=== PATIENT | male | born 1970 | race Caucasian/White ===

== ENCOUNTER 2023-12-01 04:15 | Inpatient (IN) | payer MEDICARE, SELFPAY ==
[2023-12-01] VITALS (29 sets, daily range): BP systolic 118–170; BP diastolic 80–106; PULSE 63–82; RESP 9–18; TEMP 36.4–37; O2SAT 91–98; BMI 29.2
--- NOTE | 2023-12-01 04:31 | XRR_ITS ---
PROCEDURE INFORMATION: Exam: XR Chest Exam date and time: 12/01/2023 4:33 AM Age: 53 years old Clinical indication: Chest pressure; Prior surgery; Surgery date: 6+ months; Surgery type: Pacer. Coronary stents; Patient HX: C/O chest pain; Additional info: Cp TECHNIQUE: Imaging protocol: Radiologic exam of the chest. Views: 1 view. COMPARISON: No relevant prior studies available. FINDINGS: Tubes, catheters and devices: Pacemaker was placed via the left subclavian vein. Lungs: Unremarkable. No consolidation. Pleural spaces: Unremarkable. No pleural effusion. No pneumothorax. Heart/Mediastinum: Unremarkable. No cardiomegaly. Bones/joints: Unremarkable. XR/XR chest 1V portable [id number] IMPRESSION: There are no acute chest findings.
--- NOTE | 2023-12-01 04:38 | W.ED.CHESTPA ---
HPI - Chest Pain General: Chief Complaint: Chest Pain Stated Complaint: CP Time Seen by Provider: 12/01/23 04:19 History of Present Illness: 53-year-old male patient here with chest discomfort. He tells me he has 18 stents in his heart. His chest discomfort started around 730 last night. He was short of breath. He is traveling currently. He was seen at an outside facility, where EKG changes were noted. His troponin enzymes however have been negative to date. His chest pain currently is a 0-1. He has Nitropaste on his chest. He is somewhat hypertensive. Associated symptoms: Reports dyspnea and nausea; Deny fever(s), palpitations or vomiting Review of Systems Const: Denies: fever(s) or chills Card: Reports: chest pain; Denies: palpitations Resp: Reports: dyspnea; Denies: productive cough GI: Reports: nausea; Denies: vomiting Physical Exam Const: COMMON NORMALS: no acute distress GENERAL APPEARANCE: cooperative; not ill appearing and not frail appearing HENMT: COMMON NORMALS: normocephalic, atraumatic and Normal external nose present HEAD & SCALP: normocephalic and atraumatic FACE & SINUS: normal facial exam and face symmetric NOSE: Normal external nose present Eye: COMMON NORMALS: Equal, round and reactive pupils present and EOMs intact bilaterally PUPIL: Yes Equal, round and reactive pupils present Neck/C-Spine: GENERAL: Yes trachea midline Chest: CHEST: Yes Symmetrical chest wall rise Resp: COMMON NORMALS: normal respiratory effort, No retractions, No use of accessory muscles and clear to auscultation bilaterally AUSCULTATION: clear to auscultation bilaterally Cardio: COMMON NORMALS: regular rate and regular rhythm RATE: regular rate RHYTHM: regular rhythm GI: COMMON NORMALS: Normal to inspection, nondistended, normoactive bowel sounds present Extremity: COMMON NORMALS: no pedal edema Neuro: ANTONIO COMA SCALE: document GCS findings [facility] coma scale eye opening: Spontaneous Antonio coma scale verbal response: Orientated Antonio coma scale motor response: Obey commands Antonio coma scale total score: 15 SENSORY EXAM: Yes extremities (intact) Psych: COMMON NORMALS: speech normal SPEECH: Yes normal speech Skin: COMMON NORMALS: no rashes or lesions noted GENERAL SKIN EXAM: no rashes or lesions noted Course Vital Signs: Vital signs: Vital Signs Temperature 97.9 F 12/01/23 04:16 Pulse Rate 72 12/01/23 05:05 Respiratory Rate 9 L 12/01/23 04:30 Blood Pressure 151/97 12/01/23 05:05 Pulse Oximetry 94 12/01/23 05:05 Oxygen Delivery Me thod Room Air 12/01/23 04:30 MDM - Chest Pain Medical Decision Making The patient's initial EKG here shows ST elevation in V1, 2 and 3 that is 1 box or less. Elevation is not significantly ischemic in appearance. I had spoken with our senior wind energy consultant regarding this patient while he was at the outside facility. He had seen the facilities EKG at that point, and determined that ST elevation was not significantly ischemic in nature by appearance. He is going to consult on the patient though, and likely take him to angiogram given his history. He is on heparin. This will be continued. Our hospitalist is aware of the patient. Labs have been redrawn here as well. He will go to the [facility]. Lab Data 12/01/23 04:25 12/01/23 04:25 Laboratory Results WBC 7.71 10^3/uL (3.29-11.43) 12/01/23 04:25 RBC 4.85 10^6/uL (3.85-5.65) 12/01/23 04:25 Hgb 15.00 g/dL (11.27-16.99) 12/01/23 04:25 Hct 46.1 % (37-53) 12/01/23 04:25 MCV 95.1 fl (82-101) 12/01/23 04:25 MCH 30.9 pg (27-33) 12/01/23 04:25 MCHC 32.5 g/dL (30-55) 12/01/23 04:25 RDW 12.3 % (12.1-15.1) 12/01/23 04:25 Plt Count 163 10^3/cmm (157-399) 12/01/23 04:25 MPV 10.5 fL (7.4-10.4) H 12/01/23 04:25 Neut % (Auto) 55.9 % 12/01/23 04:25 Lymph % (Auto) 29.3 % 12/01/23 04:25 [place] % (Auto) 8.4 % 12/01/23 04:25 Eos % (Auto) 5.1 % 12/01/23 04:25 Baso % (Auto) 0.9 % 12/01/23 04:25 Neut # (Auto) 4.31 10^3/uL (1.8-7.7) 12/01/23 04:25 Lymph # (Auto) 2.3 10^3/uL (0.8-4.8) 12/01/23 04:25 [place] # (Auto) 0.7 10^3/uL (0.2-0.9) 12/01/23 04:25 Eos # (Auto) 0.4 10^3/uL (0.0-0.8) 12/01/23 04:25 Baso # (Auto) 0.1 10^3/uL (0.0-0.1) 12/01/23 04:25 Nucleated RBC % (auto) 0 % 12/01/23 04:25 Nucleated RBCs # 0.0 /100WBC 12/01/23 04:25 PT 13.60 SECONDS (12.1-14.9) 12/01/23 04:25 INR 1.01 (0.8-1.2) 12/01/23 04:25 APTT 62.0 SECONDS (23.9-36.7) H 12/01/23 04:25 Sodium 137 mmol/L (136-145) 12/01/23 04:25 Potassium 3.9 mmol/L (3.5-5.1) 12/01/23 04:25 Chloride 102 mmol/L (98-107) 12/01/23 04:25 Carbon Dioxide 26 mmol/L (22-29) 12/01/23 04:25 Anion Gap 12.9 (5-19) 12/01/23 04:25 BUN 11 mg/dL (6-20) 12/01/23 04:25 Creatinine 1.1 mg/dL (0.7-1.2) 12/01/23 04:25 GFR Calculation 70.3 mL/min (90-130) L 12/01/23 04:25 Glucose 101 mg/dL (65-115) 12/01/23 04:25 Calculated Osmolality 284 mOsm/kg (285-295) L 12/01/23 04:25 Calcium 8.8 mg/dL (8.5-10.5) 12/01/23 04:25 Total Bilirubin 0.4 mg/dL (0.15-1.2) 12/01/23 04:25 AST 34 U/L (0-40) 12/01/23 04:25 ALT 39 U/L (0-41) 12/01/23 04:25 Alkaline Phosphatase 60 U/L (40-130) 12/01/23 04:25 Troponin T Baseline 12 ng/L (0-15) 12/01/23 04:25 NT-Pro-B Natriuret Pep 948 pg/mL (0-125) H 12/01/23 04:25 Total Protein 7.2 g/dL (6.6-8.7) 12/01/23 04:25 Albumin 3.8 g/dL (3.5-5.2) 12/01/23 04:25 Globulin 3.4 g/dL (1.3-4.6) 12/01/23 04:25 XR interpretation done by ED provider, pending radiology final review Discharge Plan Discharge Patient Disposition: Admitted As Inpatient Admit Provider: Chad Mandujano Clinical Impression: Chest pain Condition: Stable Coding Level of Care Code ED Warp Splitter for Suki Mendoza
[2023-12-01 04:42] LABS: Basophils # 0.1 10^3/uL (0.0-0.1); Basophils % 0.9 %; Eosinophils # 0.4 10^3/uL (0.0-0.8); Eosinophils % 5.1 %; Hematocrit 46.1 % (37-53); Lymphocytes # 2.3 10^3/uL (0.8-4.8); Lymphocytes % 29.3 %; Mean Corpuscular HGB Conc 32.5 g/dL (30-55); Mean Corpuscular Hemoglobin 30.9 pg (27-33); Mean Corpuscular Volume 95.1 fl (82-101); Mean Platelet Volume 10.5 fL (7.4-10.4); Monocytes # 0.7 10^3/uL (0.2-0.9); Monocytes % 8.4 %; Neutrophils # 4.31 10^3/uL (1.8-7.7); Neutrophils % 55.9 %; Nucleated Red Blood Cells % 0 %; Platelet Count 163 10^3/cmm (157-399); Red Blood Count 4.85 10^6/uL (3.85-5.65); Red Cell Distribution Width 12.3 % (12.1-15.1); White Blood Count 7.71 10^3/uL (3.29-11.43)
[2023-12-01 04:54] LABS: INR 1.01 (0.8-1.2)
[2023-12-01 05:02] LABS: Troponin(5th) Baseline 12 ng/L (0-15)
[2023-12-01 05:24] LABS: Alanine Aminotransferase 39 U/L (0-41); Albumin Level 3.8 g/dL (3.5-5.2); Alkaline Phosphatase 60 U/L (40-130); Blood Urea Nitrogen 11 mg/dL (6-20); Calcium 8.8 mg/dL (8.5-10.5); Carbon Dioxide 26 mmol/L (22-29); Chloride 102 mmol/L (98-107); Creatinine Clr Calc Pharmacy 92.5351; Globulin 3.4 g/dL (1.3-4.6); Glomerular Filtration Rate 70.3 mL/min (90-130); Glucose 101 mg/dL (65-115); NT Pro B Type Natriuretic Pept 948 pg/mL (0-125); Osmolality Calculated 284 mOsm/kg (285-295); Sodium 137 mmol/L (136-145); Total Bilirubin 0.4 mg/dL (0.15-1.2); Total Protein 7.2 g/dL (6.6-8.7)
[2023-12-01 05:25] LABS: Anion Gap 12.9 (5-19); Aspartate Amino Transferase 34 U/L (0-40); Potassium 3.9 mmol/L (3.5-5.1)
--- NOTE | 2023-12-01 05:35 | USCV_ITS ---
Jt Corrigan Age: 53 Gender: M : 1970 Exam Date: 12/01/2023 07:02 Ordering Phys: Chad Mandujano MD Technologist: Exam Location: [facility] Indication: chest pain sob BP: 150 / 104 HR: 87 Rhythm: Sinus Technical Quality: Adequate MEASUREMENTS (Male / Female) Normal Values 2D ECHO LV Diastolic Diameter PLAX 6.5 cm 4.2 - 5.9 / 3.9 - 5.3 cm IVS Diastolic Thickness 0.9 cm 0.6 - 1.0 / 0.6 - 0.9 cm IVS Systolic Thickness 1.4 cm LVPW Diastolic Thickness 1.1 cm 0.6 - 1.0 / 0.6 - 0.9 cm LVPW Systolic Thickness 1.4 cm LVOT Diameter 2.1 cm LV Ejection Fraction 2D Teich 36.0 % LV Ejection Fraction MOD 2C 21.8 % LV Ejection Fraction 2C AL 20.2 % LA Diameter 4.2 cm RA Systolic Volume 4C AL 51.0 ml RA Systolic Volume 4C MOD 46.9 ml LA Sys Volume AL 54.5 cm cubed LA Sys Volume Index AL 27.0 cm cubed/m squared Aorta at Sinotubular Diameter 3.0 cm DOPPLER AV Peak Velocity 128.0 cm/s LVOT Peak Velocity 91.0 cm/s AV Area Cont Eq vti 2.3 cm squared AV Area Cont Eq pk 2.4 cm squared MV Peak Velocity 74.0 cm/s MV Area PHT 3.9 cm squared Mitral E to A Ratio 1.4 TR Peak Velocity 139.0 cm/s TR Peak Gradient 7.7 mmHg TV Peak E Velocity 215.0 cm/s Right Atrial Pressure 3.0 mmHg Pulmonary Artery Systolic Pressu 10.7 mmHg PV Peak Velocity 75.0 cm/s FINDINGS Left Ventricle Left ventricle is dilated. LV systolic function is severely reduced with EF of 25 to 30%. Severe global hypokinesis Right Ventricle Normal in size and function Right Atrium Normal in size Left Atrium Normal in size Mitral Valve Structurally normal mitral valve. Mild mitral regurgitation. Aortic Valve Structurally normal aortic valve. No significant stenosis or regurgitation. Tricuspid Valve Insufficient TR jet to evaluate RVSP Pulmonic Valve Not well-visualized Pericardium Normal Aorta Normal in size IVC Appears to be normal CONCLUSIONS LV systolic function severely reduced with EF of 25 to 30%. Mild mitral regurgitation No comparison studies are available. Charly Matamoros MD (Electronically Signed) Final Date: 01 Dec 2023 11:17 S
--- NOTE | 2023-12-01 05:39 | P.HP_ITS ---
Providers/Chief Complaint 2 Admitting Physician: Chad Mandujano MD Chief Complaint: CP History of Present Illness Jt Corrigan is a 53 year old male with a past medical history of CAD with reported 18 stent placement, history of pacemaker placement, hypertension, hyperlipidemia, who presents [facility] as a transfer from [facility] for complaints of chest pain and EKG changes. Currently patient is alert oriented x 3, following all commands, blood pressure 151/97 pulse 72 respiratory rate 9, temperature 97.9, O2 sats 94% room air, currently he is chest pain-free, has Nitropaste on his chest, was given aspirin at outside facility, started on a heparin drip, patient reports that around 730 last night, he started to develop chest discomfort anterior chest discomfort, radiating down his left arm, associated with shortness of breath, does report a prior history of smoking, denies any drug use Medications/Allergies Allergies Allergy/AdvReac Type Severity Reaction Status Date / Time clopidogrel [From Plavix] Allergy ADV-Weaknes Verified 12/01/23 04:31 s PFSH Acute 2 PFSH: Medical History (Updated 12/01/23 @ 05:43 by Chad Mandujano MD) History of CAD (coronary artery disease) History of hyperlipidemia History of hypertension Surgical History (Updated 12/01/23 @ 05:43 by Chad Mandujano MD) History of heart artery stent History of permanent cardiac pacemaker placement Family History Brother CAD (coronary artery disease) Father CAD (coronary artery disease) Social History (Updated 12/01/23 @ 05:44 by Chad Mandujano MD) Smoking and tobacco/nicotine status: former use of tobacco/nicotine Alcohol intake: never Substance/Drug Use: never Vitals/I&O/Wt Last Vital Signs Temp 97.9 F 12/01/23 04:16 Pulse 72 12/01/23 05:05 Resp 9 L 12/01/23 04:30 BP 151/97 12/01/23 05:05 Pulse Ox 94 12/01/23 05:05 O2 Del Method Room Air 12/01/23 04:30 Weight last 48 hrs Weight 95.254 kg Physical Exam 2 Const: COMMON NORMALS: no acute distress and patient oriented x3 HENMT: COMMON NORMALS: normocephalic HEAD & SCALP: normocephalic Eye: COMMON NORMALS: Equal, round and reactive pupils present and EOMs intact bilaterally Neck/C-Spine: COMMON NORMALS: no JVD Lymph: LYMPHATIC: no lymphadenopathy noted Resp: COMMON NORMALS: normal respiratory effort, No retractions, No use of accessory muscles and clear to auscultation bilaterally AUSCULTATION: clear to auscultation bilaterally Cardio: COMMON NORMALS: no JVD, regular rate, regular rhythm, S1 normal heart sound present and S2 normal heart sound present RATE: regular rate RHYTHM: regular rhythm HEART SOUNDS: S1 normal heart sound present and S2 normal heart sound present GI: COMMON NORMALS: Normal to inspection, nondistended, normoactive bowel sounds present, Soft to palpation and non-tender Extremity: COMMON NORMALS: no pedal edema Neuro: COMMON NORMALS: patient oriented x3, CN's II-XII intact bilaterally and moves all extremities Psych: COMMON NORMALS: mental status grossly normal Data 12/01/23 04:25 12/01/23 04:25 A&P Assessment and plan (1) Chest pain: Plan Chest pain ? Received aspirin, Nitropaste, heparin drip at outside facility, concerns for ST elevations in anterior leads, no significant troponin rise ? Here EKG shows findings concerning for mild ST elevations in V1 to V3, here troponin is 12, findings were discussed with cardiology, after discussion with cardiology, follow-up was ST elevations were not significant in nature by appearance, cardiology will consult, plan on coronary angiography ? Plan ? Aspirin ? Statin, ? Coreg, next ?nitro paste, next ?monitor for chest pain ? Heparin drip ? Cardiac echo ? A1c, lipid panel, urine drug screen ? Heparin drip for DVT prophylaxis ? After detailed discussion of CODE STATUS patient tells me he wants okay with CPR, defibrillation, drugs per ACLS, however he does not want to be put on a ventilator, I had a detailed discussion with him that if he does need coronary angiography and he goes into respiratory failure what we do in that instance, he might need to be intubated for temporary period of time however he is adamant that he does not want to be intubated at that point he would just want to be made comfortable, but is agreeable to other interventions like ventilation via Ambu bag, BiPAP therapy Attestations 2 Medical Necessity Statement*: Patient requires hospitalization, inpatient, greater than 2 midnights, for chest pain Diagnoses Chest pain R07.9
--- NOTE | 2023-12-01 06:31 | ECG_ITS ---
[facility] Test Date: 2023-12-01 Pat Name: Jt Corrigan Department: Room: 111 Gender: Male [employer] Head: : 1970 Requested By: Oscar Kang Order Number: [id number] MD: Kaila Odom M.D. Measurements Intervals Allen Rate: 68 P: 46 NJ: 156 QRS: -20 QRSD: 104 T: 116 QT: 371 QTc: 395 Interpretive Statements SINUS RHYTHM POSSIBLE LEFT ATRIAL ENLARGEMENT [-0.1mV P-WAVE IN V1/V2] POSSIBLE LEFT VENTRICULAR HYPERTROPHY [VOLTAGE CRITERIA PLUS LAE OR QRS WIDENING] POSSIBLE SEPTAL MYOCARDIAL INFARCTION , OF INDETERMINATE AGE [30 ms Q WAVE IN V1/V2] Compared to ECG 12/01/2023 04:19:48 No significant changes Electronically Signed On 12-01-2023 18:07:36 CDT by Kaila Odom M.D. [id number]
[2023-12-01 06:52] LABS: Troponin 5 2HR 12.21 ng/L (0-15); Troponin 5 2HR Delta 0.21 ABS# (0-10)
[2023-12-01] MEDS: pantoprazole 40 mg SDV IVP (06:52)
[2023-12-01 07:02] LABS: Chol HDL Ratio 5.15 mg/dL (1.0-5.00); Cholesterol 201 mg/dL (0-200); HDL Cholesterol 39 mg/dL (60-100); LDL Cholesterol Calculated 135 mg/dL (50-129); LDL HDL Ratio 3.46 RATIO (0.00-3.22); Thyroid Stimulating Hormone 3.36 uIU/mL (0.27-4.20); Triglycerides 133 mg/dL (0-150)
[2023-12-01 07:14] LABS: Alcohol Level < 10 mg/dL (0-10)
[2023-12-01 07:21] LABS: Estmated Average Glucose 103; Hemoglobin A1C 5.2 % (4.0-6.0)
--- NOTE | 2023-12-01 07:43 | P.CONIM_ITS ---
Providers/Reason For Consult 2 Consulting Physician/Specialty*: Charly Matamoros MD/ Cardiology Reason for Consult*: Unstable angina Requesting Physician: Dr Gomez Attending Physician: Chad Mandujano MD History of Present Illness History of Present Illness Jt Corrigan is a 53 year old male with a past medical history of CAD with several stents presented to outside hospital emergency room yesterday evening with severe substernal chest pain radiating to the left arm and diaphoresis. Episode of severe pain was for about 30 minutes however per ER physician there that lasted several hours on and off. They were concerned about dynamic EKG changes in anterior and anterolateral leads. I reviewed EKG last night and patient did not have STEMI and as pain resolved after multiple nitros and troponins did not trend up, we treated as unstable angina. Per patient last stent was in June. He says he only takes eliquis and not on any antiplatelet agents, last dose was yesterday morning. He takes aspirin occasionally. He has an ICD in place. Review of Systems 2 Const: Denies: fever(s) or chills Card: Reports: chest pain; Denies: palpitations Resp: Reports: dyspnea; Denies: productive cough GI: Reports: nausea; Denies: vomiting Medications/Allergies Allergies Allergy/AdvReac Type Severity Reaction Status Date / Time clopidogrel [From Plavix] Allergy ADV-Weaknes Verified 12/01/23 04:31 s Current Medications Generic Name Dose Route Start Last Admin Trade Name Freq PRN Reason Stop Dose Admin Pantoprazole Sodium 40 mg 12/01/23 06:06 12/01/23 06:52 Pantoprazole 40 Mg Sdv IVP 40 mg Q24H ASHLEY Administration PFSH Acute 2 PFSH: Medical History (Updated 12/01/23 @ 08:04 by Charly Matamoros M.D) History of CAD (coronary artery disease) History of hyperlipidemia History of hypertension Surgical History History of heart artery stent History of permanent cardiac pacemaker placement Family History Brother CAD (coronary artery disease) Father CAD (coronary artery disease) Social History Smoking and tobacco/nicotine status: former use of tobacco/nicotine Alcohol intake: never Substance/Drug Use: never Vitals/I&O/Wt Last Vital Signs Temp 97.8 F 12/01/23 06:06 Pulse 63 12/01/23 07:27 Resp 13 12/01/23 07:27 BP 145/89 12/01/23 07:27 Pulse Ox 95 12/01/23 07:27 O2 Del Method Room Air 12/01/23 07:27 Weight last 48 hrs Weight 209 lb 11.2 oz Weight 210 lb Physical Exam 2 Narrative: GENERAL: Patient is alert, awake and oriented x3. [] NECK: No jugular vein distension. [] HEENT: No cyanosis. No icterus. No pallor. [] HEART: Regular S1 and S2. No murmur, rub or gallop. [] LUNGS: Clear to auscultate bilaterally. [] CENTRAL NERVOUS SYSTEM: Grossly nonfocal. [] EXTREMITIES: Lower extremities with 1+ edema bilaterally. Data 12/01/23 04:25 12/01/23 04:25 A&P Assessment and plan (1) Chest pain: (2) Unstable angina: (3) History of hypertension: (4) History of CAD (coronary artery disease): Plan Patient has presented with severe chest pain symptoms that are typical and consistent with unstable angina as well as having dynamic EKG changes at outside hospital. Initially there was concern for STEMI however on review of EKG last night, STEMI was not performed. His chest pain eventually resolved with multiple nitros and Nitropaste. Given his history of multiple stents and current presentation with dynamic EKG changes, we will proceed with coronary angiogram with possible PCI. NPO Order echocardiogram Per patient he is on Eliquis. Takes aspirin occasionally. We will confirm records from outside hospital. We will give him aspirin 325 mg. Based on coronary angiogram findings, further recommendations Thank you for involving us with care of this patient. We will continue to follow. please call with questions. Consult Attestations 2 Medical Necessity Statement: Care expected to cross 2 midnights. Coding Level of Care Code Acute Code for Chg Fwd Diagnoses Chest pain R07.9 Unstable angina I20.0 History of hypertension Z86.79 History of CAD (coronary artery disease) Z86.79
--- NOTE | 2023-12-01 08:04 | XACV_ITS ---
Exam Room: [facility] Ht: 180 cm Wt: 95 kg BSA: 2.20 m2 Gender: Male : 1970 Any Known Allergies: Plavix Exam Priority: Routine Procedure(s): Procedure Description: Diagnostic procedure Procedure Description: Miscellaneous Procedure Description: Angio-Seal Procedure Description: Coronary Angiography Procedure Description: Pressure Wire Diagnostic Cath Status: Urgent Diagnostic Findings * INDICATION: Unstable angina. * Left Main has no significant disease. * Circumflex has no signfiicant disease. * LAD has patent prior stents in proximal and mid segment. Mid Left Anterior Descending proximal to the stent has a moderate 50% stenosis, SERENITY: 3 flow. * Proximal Right Coronary Artery: minimal 30% stenosis, SERENITY: 3 flow. Has patent prior stent in proximal to mid vessel. * Coronary angiography shows right dominance. Interventional Findings * Procedure detail:. We initially engaged left main artery with XB 3.5 guide catheter initially however it was pointing towards left circumflex artery. We then engaged it with XB 3.0 guide catheter. After normalization, iFR wire was advanced to distal LAD. iFR value 0.90 of was obtained. As the test was borderline normal we decided to confirm it with FFR. Adenosine was infused IV and we obtained a nonischemic value of 0.81. As both studies showed values within normal limits, medical therapy was decided. iFR wire and guide catheter were removed. Patient left the laboratory inspector in a stable condition. Conclusions 1. Moderate mid LAD stenosis status post IFR and FFR both of which were negative for ischemia. 2. Medical therapy. Patent prior LAD and RCA stents.. Recommendations * Aggressive risk factor modification. * Outpatient cardiology follow up in 4 weeks. Interventional RX Recommendation: medical therapy and/or counseling Diagnostic RX Recommendation: other cardiac therapy w/o CABG/PCI Anticoagulation: Heparin Pressures Phase:Rest AO : 119 / 94 ( 106 ) @ 10:12:00 AM 131 / 89 ( 108 ) @ 10:20:00 AM 133 / 78 ( 99 ) @ 10:37:00 AM Clinical Evaluation EBL: 5mL-10mL Procedural Details Procedure Consent Obtained. Pre-Procedure Time Out. Identified patient by full name and date of as verbalized by the patient/guarantor. Does the consent match the physician's order: Yes. Accurate & Complete Informed Consent: Yes. Inpatient/Outpatient History & Physical on Chart: Yes. If H&P is completed, is and addenduem needed: No; If yes, is the addendum complete: N/A. Visualize and Verify Site with Patient/Guarantor: N/A. Relevant Radiology Images available: Yes. Pre-op teaching completed and patient verbalized understanding. The risks, benefits, and alternatives of sedation and/or procedure were discussed by physician. The patient agrees to continue. Procedure started. Physician arrived. [facility] Clinical Fraility Score: 3: Managing Well. Mold Maker Plastic Molds Indications: ACS > 24 hours. Chest Pain Symptom Assessment: Typical Angina Symptoms. Correct patient, site and procedure confirmed by cath team. Current diagnosis: NSTEMI. PERRLA. Strong, equal hand extruding press operator bilaterally. Lungs clear x 5 lobes. IV Site on Arrival: 18 gauge in the left anticubital. IV Fluids: 0.9% NaCl at KVO. 0 mL infused prior to laboratory inspector. Oxygen started at 2liters/min via nasal canula. right groin was prepped with chloroprep then draped in the usual sterile fashion. right radial was prepped with chloroprep then draped in the usual sterile fashion. Baseline sample Acquired. HR: 83 BPM. Physician scrubbed in. Immediate Pre-Procedure Time Out. Correct Patient: Yes; Correct Procedure: Yes; Correct Site: Yes; Correct Patient Position: Yes; Correct Supplies: Yes; Dried Flammable Prep: Yes; Blood Products Available: N/A;. Lidocaine 1% infiltrated to the right radial. Arterial access obtained. Wire unable to advance. Wire and needle out. Ultrasound being used to obtain access. Arterial access obtained. Wire unable to advance. Wire and needle out. TR band placed. Hemostasis obtained. Unable to obtain radial access. MD attempting to gain access in the Femoral artery. Lidocaine 1% infiltrated to the right groin. Ultrasound being used to obtain access. Arterial access obtained with micropuncture set. A 5 dutch JL4 catheter in over wire. Multiple views taken of left coronary artery. Catheter removed over the standard wire. A 5 dutch JR4 catheter in over wire. Multiple views taken of right coronary artery. Catheter removed over the standard wire. 6 dutch XB 3.5 guide catheter was inserted over the wire. IFR guidewire was advanced through the guide catheter to lesion in the mid LAD. Wire out. Guide catheter out. 6 dutch XB 3 guide catheter was inserted over the wire. IFR guidewire was advanced through the guide catheter to lesion in the mid LAD. IFR results: 0.9. Adenosine stopped. FFR Result: 0.81. Wire out. Results checked. Guide catheter out. A Right femoral angiogram was performed to determine safe placement of closure device. A Angio-Seal VIP ([place]) was successful obtaining hemostatsis at the Right Femoral artery insertion site. Post Procedure: Pulses reassessed and unchanged. PERRLA. Strong, equal hand extruding press operator bilaterally. No VTE prophylaxis required. Medication's Wasted: Nitro = 49.8 mcg. Medication's Wasted: Heparin = 3000 units. Total IV fluids: 68 mL. Complications: None. Post-op diagnosis: Non-obstructive CAD. Estimated blood loss: 5mL-10mL. Responsiveness - Normal response to verbal stimuli; alert and oriented, PERRLA. Airway - Unaffected, no intervention required; spontaneous ventilation. Circulation: W/N/L, pulses unchanged. Nausea/Vomiting: No. Procedure completed. Patient transferred by bed to CPRU. Vital chart was stopped. Access Site Site: Right Femoral artery Sheath Size: 6 Fr Hemostasis Method: Angio-Seal VIP ([place]) Hemostasis Success: Successful Procedure Medications Start: 8:41 AM Stop: 8:41 AM Medication: Benadryl Amount: 50 mg Route: I.V. Start: 8:42 AM Stop: 8:42 AM Medication: Versed Amount: 1 mg Route: I.V. Start: 8:42 AM Stop: 8:42 AM Medication: Fentanyl Amount: 50 mcg Route: I.V. Start: 8:56 AM Stop: 8:56 AM Medication: Nitrogylcerin Amount: 200 mcg Route: I.C. Start: 9:13 AM Stop: 9:13 AM Medication: Versed Amount: 1 mg Route: I.V. Start: 9:13 AM Stop: 9:13 AM Medication: Fentanyl Amount: 50 mcg Route: I.V. Start: 9:18 AM Stop: 9:18 AM Medication: Heparin Amount: 7000 units Route: I.V. Start: 9:26 AM Stop: 9:26 AM Medication: Heparin Amount: 1000 units Route: I.V. Start: 9:34 AM Stop: 9:34 AM Medication: Adenosine (Adenocard) Amount: 798 ml/hr Route: I.VKanika avelar I, the attending physician, have reviewed and verified all procedure medications. Yes, all medications given per verbal order History/Risk Factors Hypertension: Yes Dyslipidemia: Yes Peripheral Arterial Disease (PAD): No Myocardial Infarction ([place]): No Obesity: No Renal Disease: No Prior Interventions PCI: Yes CABG: No Valve Surgery: No Report Signatures Finalized by Charly Matamoros MD on 12/01/2023 10:18 AM
[2023-12-01] MEDS: aspirin 325 mg Tablet PO (08:25)
[2023-12-01] MEDS: carvedilol 3.125 mg Tablet PO ×2 (08:25→17:11)
--- NOTE | 2023-12-01 08:40 | W.PM.OPSUD ---
Surgery/Procedure H&P Update DATE OF PROCEDURE: December 01, 2023 DATE H&P PERFORMED: 12/01/23 H&P UPDATE INFORMATION: I have reviewed H&P completed within last 30 days, I have examined patient prior to procedure and No changes to prior documentation CHANGES TO PREVIOUS DOCUMENTATION: Patient code status is listed as limited resuscitation as he is OK with CPR but no ventilator. I had a discussion with him and he has agreed to switch it to full code for the duration of the procedure. PREOP DIAGNOSIS: Unstable angina PRIMARY INDICATION FOR PROCEDURE: Unstable angina PLANNED PROCEDURE: Left heart cath with possible percutaneous coronary intervention PATIENT REASSESSED PRIOR TO SEDATION, WITH NO CHANGE NOTED: Yes PHYSICAL EXAM: alert, oriented x 3, clear to auscultation bilaterally and regular rate & rhythm AIRWAY EVAL/ANESTHESIA PLAN: normal airway, ASA III, Local Anesthesia, Risks, benefits & alternatives of sedation and/or procedure discussed and Patient agrees to continue as planned ADDITIONAL INFORMATION: Moderate sedation
--- NOTE | 2023-12-01 09:18 | PC.CHAP ---
Pastoral Care Encounter/Spiritual Assessment Type of Contact [] Declined head of art visit [] Patient/Family/Request visit [] Outpatient visit [] Follow-up visit [] Physician referral [] Code/Alert [x] Routine visit [] Staff referral [] Actively dying [] Patient sleeping [] Family support [] [x] Out of room [] Palliative care [] [] Receiving care in room [] Pre-surgical visit [] Trauma [] Long length of stay [] ICU visit [] Other: Relational/Emotional Strength [] Patient feels connected with others/family/visitors/staff [] Distress [] Loneliness/isolation [] Abandonment Spirituality of Patient [] Person of Diana [] Attends Pentecostalism of their Diana [] Believes in Prayer [] Reads Bible or Episcopalian materials [] There are Spiritual issues to be addressed Tool Hardener Interventions [x] Prayer [] Active listening [] Non-anxious presence [] Spiritual/emotional support [] Crisis/trauma care [] Spiritual counseling [] Bereavement support [] Provided bereavement packet [] Provided Bible/devotional materials [] Provided toy/stuffed animal, coloring book to patient or family member [] Provided Communion [] Anointing/[place] [] Salvation [] Completed spiritual assessment [] Other: Impact on Illness or Injury [] Angry [] Fearful [] Anxious [] Often cries [] Exhaustion [] Unable to work [] Unable to attend restoration [] Unable to walk/stand [] Unable to read [] Unable to drive [] Unable to eat/drink [] Unable to sleep [] Unable to be with family [] Patient intubated [] Other: Summary Time spent with patient
--- NOTE | 2023-12-01 09:50 | SUR.EXTENDED ---
Received the patient back from the laborer cutting tool via bed s/p Diagnostic [facility]. Patient drowsy. Awakens to verbal stimuli. A & 0 x 3. panel monitor placed and vital signs obtained. Right femoral and right radial access sites with no bleeding or hematoma noted. TR band intact. angioseal was placed in the right groing. Bedrest x 4 hours. Patient may ambulate at 1342. Dressing D/I. No other assessment changes noted from pre cath assessment. Will transfer to room 111-2 after recovery. No concerns voiced at this time.
--- NOTE | 2023-12-01 10:26 | SUR.EXTENDED ---
Transferred to room 111-2 via bed.
--- NOTE | 2023-12-01 10:31 | ECG_ITS ---
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 Measurements Intervals Anderson Rate: 76 P: 55 TX: 147 QRS: -15 QRSD: 106 T: 115 QT: 350 QTc: 394 Interpretive Statements SINUS RHYTHM POSSIBLE LEFT ATRIAL ENLARGEMENT [-0.1mV P-WAVE IN V1/V2] POSSIBLE LEFT VENTRICULAR HYPERTROPHY [VOLTAGE CRITERIA PLUS LAE OR QRS WIDENING] ANTEROSEPTAL MYOCARDIAL INFARCTION , PROBABLY RECENT [40+ ms Q WAVE IN V1-V4] ACUTE AL INTERPRETATION BASED ON A DEFAULT AGE OF 40 YEARS No previous ECG available for comparison Electronically Signed On 12-01-2023 18:04:57 CDT by Kaila Odom M.D. [email or web address]
--- NOTE | 2023-12-01 12:32 | PM.MISC ---
Miscellaneous Note Note: Seen today. Continue management as per assessment plan. Will request records from [facility].
[2023-12-01] MEDS: atorvastatin 40 mg Tablet PO (20:30)
[2023-12-02] VITALS (7 sets, daily range): BP systolic 136–152; BP diastolic 82–91; PULSE 66–72; RESP 12–20; TEMP 36.4–36.6; O2SAT 93–96; BMI 29.2
[2023-12-02 04:24] LABS: Basophils # 0.1 10^3/uL (0.0-0.1); Basophils % 0.7 %; Eosinophils # 0.3 10^3/uL (0.0-0.8); Eosinophils % 4.3 %; Hematocrit 43.8 % (37-53); Lymphocytes # 1.5 10^3/uL (0.8-4.8); Lymphocytes % 20.9 %; Mean Corpuscular HGB Conc 33.1 g/dL (30-55); Mean Corpuscular Volume 93.6 fl (82-101); Mean Platelet Volume 11.3 fL (7.4-10.4); Monocytes # 0.6 10^3/uL (0.2-0.9); Monocytes % 8.3 %; Neutrophils # 4.75 10^3/uL (1.8-7.7); Neutrophils % 65.5 %; Nucleated Red Blood Cells % 0 %; Platelet Count 156 10^3/cmm (157-399); Red Blood Count 4.68 10^6/uL (3.85-5.65); Red Cell Distribution Width 12.3 % (12.1-15.1); White Blood Count 7.24 10^3/uL (3.29-11.43)
[2023-12-02 04:46] LABS: Anion Gap 13.9 (5-19); Blood Urea Nitrogen 9 mg/dL (6-20); Calcium 8.9 mg/dL (8.5-10.5); Carbon Dioxide 23 mmol/L (22-29); Chloride 105 mmol/L (98-107); Creatinine Clr Calc Pharmacy 113.0246; Glomerular Filtration Rate 88.6 mL/min (90-130); Glucose 87 mg/dL (65-115); Magnesium 2.2 mg/dL (1.7-2.3); Osmolality Calculated 284 mOsm/kg (285-295); Potassium 3.9 mmol/L (3.5-5.1); Sodium 138 mmol/L (136-145)
[2023-12-02] MEDS: pantoprazole 40 mg SDV IVP (05:35)
--- NOTE | 2023-12-02 08:16 | PM.PN ---
Subjective Subjective: Patient is doing well. No chest pain. Vitals/I&O/Wt Last Vital Signs Temp 97.6 F 12/02/23 07:35 Pulse 66 12/02/23 07:35 Resp 15 12/02/23 07:35 BP 140/84 12/02/23 07:35 Pulse Ox 93 12/02/23 07:35 O2 Del Method Room Air 12/02/23 07:35 Weight last 48 hrs Weight 209 lb 8 oz Weight 209 lb 11.2 oz Weight 210 lb Physical Exam Narrative: GENERAL: Patient is alert, awake and oriented x3. [] NECK: No jugular vein distension. [] HEENT: No cyanosis. No icterus. No pallor. [] HEART: Regular S1 and S2. No murmur, rub or gallop. [] LUNGS: Clear to auscultate bilaterally. [] CENTRAL NERVOUS SYSTEM: Grossly nonfocal. [] EXTREMITIES: Lower extremities with 1+ edema bilaterally. Data 12/02/23 02:59 12/02/23 02:59 A&P Assessment and plan (1) Chest pain: (2) Unstable angina: (3) History of hypertension: (4) History of CAD (coronary artery disease): Plan Patient overall doing well. Coronary angiogram demonstrated moderate LAD stenosis which was confirmed to be nonischemic with IFR and FFR. Aggressive medical therapy. Resume Eliquis. Thank you for involving us with care of this patient. Patient is stable to be discharge from cardiology standpoint. please call with questions. Attestations Medical Necessity Statement*: Care expected to cross 2 midnights. Coding Level of Care Code Acute Code for [facility] Diagnoses Chest pain R07.9 Unstable angina I20.0 History of hypertension Z86.79 History of CAD (coronary artery disease) Z86.79
[2023-12-02] MEDS: ticagrelor 90 mg Tablet 180 MG PO (09:40)
[2023-12-02] MEDS: carvedilol 3.125 mg Tablet PO (09:40)
[2023-12-02] MEDS: aspirin 81 mg EC Tablet PO (09:40)
--- NOTE | 2023-12-02 10:00 | PC.CHAP ---
Pastoral Care Encounter/Spiritual Assessment Type of Contact [] Declined electric installer visit [] Patient/Family/Request visit [] Outpatient visit [] Follow-up visit [] Physician referral [] Code/Alert [x] Routine visit [] Staff referral [] Actively dying [] Patient sleeping [] Family support [] [] Out of room [] Palliative care [] [] Receiving care in room [] Pre-surgical visit [] Trauma [] Long length of stay [] ICU visit [] Other: Relational/Emotional Strength [x] Patient feels connected with others/family/visitors/staff [] Distress [] Loneliness/isolation [] Abandonment Spirituality of Patient [x] Person of Diana [] Attends U[place]din of their Diana [x] Believes in Prayer [] Reads Bible or Bahai materials [] There are Spiritual issues to be addressed Rail Transit Operator Interventions x] Prayer [x] Active listening [] Non-anxious presence [x] Spiritual/emotional support [] Crisis/trauma care [] Spiritual counseling [] Bereavement support [] Provided bereavement packet [] Provided Bible/devotional materials [] Provided toy/stuffed animal, coloring book to patient or family member [] Provided Communion [] Anointing/[place] [] Salvation [x] Completed spiritual assessment [] Other: Impact on Illness or Injury [] Angry [] Fearful [] Anxious [] Often cries [] Exhaustion [] Unable to work [] Unable to attend uatsdin [] Unable to walk/stand [] Unable to read [] Unable to drive [] Unable to eat/drink [] Unable to sleep [] Unable to be with family [] Patient intubated [] Other: Summary Time spent with patient 5 min
--- NOTE | 2023-12-02 12:50 | PM.DCS ---
Discharge Providers Date of Admission: 12/01/23 04:32 Date of Discharge: December 02, 2023 Attending Provider at Admission: Chad Mandujano MD Attending Provider at Discharge: Jennifer Martins MD Diagnoses at Discharge Discharge Diagnosis (1) Chest pain: Status: Resolved (2) Unstable angina: Status: Resolved (3) History of hypertension: Status: Acute (4) History of CAD (coronary artery disease): Status: Acute Reason for Visit Reason for Visit: CP Hospital Course Hospital Course Patient presented to the hospital for substernal chest pain. Patient did not have a STEMI. Patient was admitted for unstable angina. He underwent coronary angiogram with no intervention. His records from [place] in [facility] were reviewed. As per patient he received a stent in June however that was not the case. It was a diagnostic coronary angiogram done at [facility]. There was no documented history of atrial fibrillation however patient was discharged on Eliquis from there. He did not have any other medications with him. He needed refills for all his meds. Cardiology was consulted as well. Patient was sent home on aspirin and Eliquis Coreg atorvastatin, omeprazole. He is to follow-up with newly assigned a PCP and cardiology as outpatient here. All questions answered. Patient chest pain-free at time of discharge. Family also updated. Physical Exam Const: COMMON NORMALS: no acute distress and patient oriented x3 HENMT: COMMON NORMALS: normocephalic HEAD & SCALP: normocephalic Eye: COMMON NORMALS: Equal, round and reactive pupils present and EOMs intact bilaterally PUPIL: Yes Equal, round and reactive pupils present Neck/C-Spine: COMMON NORMALS: no JVD Lymph: LYMPHATIC: no lymphadenopathy noted Resp: COMMON NORMALS: normal respiratory effort, No retractions, No use of accessory muscles and clear to auscultation bilaterally AUSCULTATION: clear to auscultation bilaterally Cardio: COMMON NORMALS: no JVD, regular rate, regular rhythm, S1 normal heart sound present and S2 normal heart sound present RATE: regular rate RHYTHM: regular rhythm HEART SOUNDS: S1 normal heart sound present and S2 normal heart sound present GI: COMMON NORMALS: Normal to inspection, nondistended, normoactive bowel sounds present, Soft to palpation and non-tender PALPATION: Yes Soft to palpation Extremity: COMMON NORMALS: no pedal edema Neuro: COMMON NORMALS: patient oriented x3, CN's II-XII intact bilaterally and moves all extremities Psych: COMMON NORMALS: mental status grossly normal Discharge Data Studies Completed and Pending Completed Studies During Hospitalization Category Date Time Status ASSURANCE ENGINEER request for service Routine Exams 12/01/23 08:04 Completed XR chest 1V portable [id number] Stat Exams 12/01/23 04:31 Completed CV. echo complete* [id number] Stat Ultrasound 12/01/23 05:35 Completed Pending at discharge Category Date Time Status Drug Screen, Urine Routine Lab 12/01/23 06:06 Ordered Platelet Count Q2D Lab 12/03/23 04:00 Ordered Platelet Count Q2D Lab 12/05/23 04:00 Ordered Urinalysis Routine Lab 12/01/23 06:06 Ordered Radiology Impressions Chest X-Ray 12/01/23 04:31 IMPRESSION: There are no acute chest findings. Laboratory Results WBC 7.24 10^3/uL (3.29-11.43) 12/02/23 02:59 RBC 4.68 10^6/uL (3.85-5.65) 12/02/23 02:59 Hgb 14.50 g/dL (11.27-16.99) 12/02/23 02:59 Hct 43.8 % (37-53) 12/02/23 02:59 MCV 93.6 fl (82-101) 12/02/23 02:59 MCH 31.0 pg (27-33) 12/02/23 02:59 MCHC 33.1 g/dL (30-55) 12/02/23 02:59 RDW 12.3 % (12.1-15.1) 12/02/23 02:59 Plt Count 156 10^3/cmm (157-399) L 12/02/23 02:59 MPV 11.3 fL (7.4-10.4) H 12/02/23 02:59 Neut % (Auto) 65.5 % 12/02/23 02:59 Lymph % (Auto) 20.9 % 12/02/23 02:59 [place] % (Auto) 8.3 % 12/02/23 02:59 Eos % (Auto) 4.3 % 12/02/23 02:59 Baso % (Auto) 0.7 % 12/02/23 02:59 Neut # (Auto) 4.75 10^3/uL (1.8-7.7) 12/02/23 02:59 Lymph # (Auto) 1.5 10^3/uL (0.8-4.8) 12/02/23 02:59 [place] # (Auto) 0.6 10^3/uL (0.2-0.9) 12/02/23 02:59 Eos # (Auto) 0.3 10^3/uL (0.0-0.8) 12/02/23 02:59 Baso # (Auto) 0.1 10^3/uL (0.0-0.1) 12/02/23 02:59 Nucleated RBC % (auto) 0 % 12/02/23 02:59 Nucleated RBCs # 0.0 /100WBC 12/02/23 02:59 PT 13.60 SECONDS (12.1-14.9) 12/01/23 04:25 INR 1.01 (0.8-1.2) 12/01/23 04:25 APTT 62.0 SECONDS (23.9-36.7) H 12/01/23 04:25 Sodium 138 mmol/L (136-145) 12/02/23 02:59 Potassium 3.9 mmol/L (3.5-5.1) 12/02/23 02:59 Chloride 105 mmol/L (98-107) 12/02/23 02:59 Carbon Dioxide 23 mmol/L (22-29) 12/02/23 02:59 Anion Gap 13.9 (5-19) 12/02/23 02:59 BUN 9 mg/dL (6-20) 12/02/23 02:59 Creatinine 0.9 mg/dL (0.7-1.2) 12/02/23 02:59 GFR Calculation 88.6 mL/min (90-130) L 12/02/23 02:59 Glucose 87 mg/dL (65-115) 12/02/23 02:59 Estimat Average Glucose 103 12/01/23 04:25 Hemoglobin A1c 5.2 % (4.0-6.0) 12/01/23 04:25 Calculated Osmolality 284 mOsm/kg (285-295) L 12/02/23 02:59 Calcium 8.9 mg/dL (8.5-10.5) 12/02/23 02:59 Magnesium 2.2 mg/dL (1.7-2.3) 12/02/23 02:59 Total Bilirubin 0.4 mg/dL (0.15-1.2) 12/01/23 04:25 AST 34 U/L (0-40) 12/01/23 04:25 ALT 39 U/L (0-41) 12/01/23 04:25 Alkaline Phosphatase 60 U/L (40-130) 12/01/23 04:25 Troponin T Baseline 12 ng/L (0-15) 12/01/23 04:25 Troponin T 120 Minute 12.21 ng/L (0-15) 12/01/23 06:24 Delta Troponin T 0.21 ABS# (0-10) 12/01/23 06:24 Troponin T Hi Sens 6Hr 10.70 ng/L (0-15) 12/01/23 10:47 Troponin T Hi Sens 6Hr Delta -1.30 ng/L (0-12) L 12/01/23 10:47 NT-Pro-B Natriuret Pep 948 pg/mL (0-125) H 12/01/23 04:25 Total Protein 7.2 g/dL (6.6-8.7) 12/01/23 04:25 Albumin 3.8 g/dL (3.5-5.2) 12/01/23 04:25 Globulin 3.4 g/dL (1.3-4.6) 12/01/23 04:25 Triglycerides 133 mg/dL (0-150) 12/01/23 04:25 Cholesterol 201 mg/dL (0-200) H 12/01/23 04:25 LDL Cholesterol, Calc 135 mg/dL (50-129) H 12/01/23 04:25 HDL Cholesterol 39 mg/dL (60-100) L 12/01/23 04:25 LDL/HDL Ratio 3.46 RATIO (0.00-3.22) H 12/01/23 04:25 Cholesterol/HDL Ratio 5.15 mg/dL (1.0-5.00) H 12/01/23 04:25 TSH 3.36 uIU/mL (0.27-4.20) 12/01/23 04:25 Ethyl Alcohol < 10 mg/dL (0-10) 12/01/23 04:25 Vitals Last Vital Signs Temp 97.9 F 12/02/23 11:42 Pulse 71 12/02/23 11:42 Resp 20 H 12/02/23 11:42 BP 136/82 12/02/23 11:42 Pulse Ox 96 12/02/23 11:42 O2 Del Method Room Air 12/02/23 11:42 Discharge Plan Discharge Patient Disposition: Home Condition: Stable Prescriptions: New atorvastatin 40 mg Tablet 40 mg PO BEDTIME Qty: 30 0RF aspirin 81 mg Tablet,Delayed Release (Dr/Ec) 81 mg PO DAILY Qty: 30 0RF carvedilol 3.125 mg Tablet 3.125 mg PO BID Qty: 30 0RF Eliquis 5 mg tablet 5 mg PO BID Qty: 60 0RF Continued omeprazole 20 mg Capsule,Delayed Release(Dr/Ec) 40 mg PO DAILY Qty: 30 0RF Discontinued Eliquis 5 mg Tablet 5 mg PO DAILY Discharge Orders: Discharge Order (Routine); Ordered 12/02/23 Ordered By: Jennifer Martins Referrals: Charly Matamoros M.D [Physician] - 1 month (During your appointment with Mariana Avalos you will be scheduled for an follow-up appointment with Dr. Matamoros. Thank you. ) Mariana Avalos FNP [Nurse Practitioner] - 12/12/23 10:30 am Francis Berkowitz MD [Staff Physician] - 12/11/23 10:00 am Discharge Diet: Cardiac Discharge Activity: Limit activity as instructed Patient Instructions: Aspirin (By mouth), Atorvastatin (By mouth) (Lipitor, Atorvaliq), Carvedilol (By mouth) (Coreg, Coreg CR, Hypertenevide-12.5), Apixaban (By mouth) (Eliquis), Coronary Artery Disease (DC), Angiography (GEN), Chest Pain Stoplight, Opioid Safety, Post Angiogram Home Care Instructions Discharge Attestations Time Spent in Discharge Care*: greater than 30 min Quality Metrics Clinical Quality Measures [ No reported AMI, CVA or VTE this stay] Coding Level of Care Code Acute Code for [facility] Diagnoses Chest pain R07.9 Unstable angina I20.0 History of hypertension Z86.79 History of CAD (coronary artery disease) Z86.79
--- NOTE | 2023-12-02 14:50 | PC.NURSE ---
Discharge Note Patient discharged to [home] via [w/c to POV] accompanied by [his sister ]. Discharge instructions reviewed with patient and/or contact center representative. Mobile pharmacy medications and/or prescriptions provided. Belongings/home medications returned.
== END 2023-12-02 14:50 | disposition home or self-care (01) | DRG 287 ==
LOC: ER 05:02 → CSU 05:10
PROVIDERS: Internal Medicine; Admitting Provider Family Medicine; Emergency Provider Emergency Medicine; Visit Provider Internal Medicine
PROC: B2111ZZ Fluoroscopy of Multiple Coronary Arteries using Low Osmolar Contrast (ICD-10-PCS; principal; 2023-12-01 08:30)
DX: I25.110 Atherosclerotic heart disease of native coronary artery with unstable angina pectoris (principal); I10 Essential (primary) hypertension; Z87.891 Personal history of nicotine dependence; Z95.810 Presence of automatic (implantable) cardiac defibrillator; E78.5 Hyperlipidemia, unspecified
CPT/HCPCS: 36415; 71045; 80048; 80053; 80061; 80307; 83036; 83735; 83880; 84443; 84484; 85025; 85610; 85730; 93005; 93306; 93454; 93571; 94664; 96374; 96375; 96376; 99152; 99153; 99285; C1760; C1769; C1887; C1894; C9113; G0269; J0153; J1200; J1644; J2250; J3010; J3490; Q9967

== ENCOUNTER → 2023-12-12 10:09 | Outpatient (BNVA) | payer MEDICARE, SELFPAY | PROVIDERS: Visit Provider Nurse Practitioner Family | DX: I25.10 Atherosclerotic heart disease of native coronary artery without angina pectoris (principal); I11.0 Hypertensive heart disease with heart failure; I50.22 Chronic systolic (congestive) heart failure; Z95.810 Presence of automatic (implantable) cardiac defibrillator; Z87.891 Personal history of nicotine dependence; Z79.01 Long term (current) use of anticoagulants | CPT/HCPCS: 80048; 99214 ==

== ENCOUNTER 2023-12-31 13:41 | Outpatient (CLI) | payer MEDICARE, SELFPAY ==
--- NOTE | 2023-12-31 14:00 | USCV_ITS ---
Jt Corrigan Age: 53 Gender: M : 1970 Exam Date: 12/31/2023 14:10 Ordering Phys: Mariana Avalos Technologist: [place] [facility] [place]ication: ef BP: 110 / 70 HR: Rhythm: Sinus Technical Quality: Adequate MEASUREMENTS (Male / Female) Normal Values 2D ECHO LVOT Diameter 2.2 cm LV Ejection Fraction MOD 2C 47.9 % LV Ejection Fraction 2C AL 49.5 % LA Diameter 3.9 cm RA Systolic Volume 4C AL 43.5 ml RA Systolic Volume 4C MOD 42.2 ml Aorta at Sinotubular Diameter 2.1 cm M-MODE LA Ao Ratio MM 1.4 AV Cusp Separation MM 2.7 cm FINDINGS Left Ventricle Severe diffuse hypokinesia of the left-ventricle more so of the septum and the apex. LVEF 30 to 35% Right Ventricle Normal RV size ejection fraction Right Atrium Possibly of normal size Left Atrium Possibly of normal size Mitral Valve No gross abnormalities noted Aortic Valve Thickened aortic valve. Tricuspid Valve No gross abnormalities noted Pulmonic Valve Not visualized well Pericardium No pericardial effusion. Aorta Normal aortic annulus size. IVC Inferior vena cava not visualized. CONCLUSIONS Severe diffuse hypokinesia of the left-ventricle more so of the septum and the apex. LVEF 30 to 35%. (visual). The EF is calculated to be 48% by MOD. The endocardium is not visualized well Normal RV size and ejection fraction. No pericardial effusion. Recommend contrast echo to better evaluate the LV ejection fraction Dr Kaila Odom MD FAC (Electronically Signed) Final Date: 01 January 2024 20:11 S
== END 2023-12-31 13:42 | disposition home or self-care (01) ==
PROVIDERS: Visit Provider Nurse Practitioner Family
DX: I50.20 Unspecified systolic (congestive) heart failure (principal); I51.89 Other ill-defined heart diseases; I35.8 Other nonrheumatic aortic valve disorders
CPT/HCPCS: 93308

== ENCOUNTER 2023-12-31 14:29 | Emergency (ER) | payer MEDICARE, SELFPAY ==
[2023-12-31 14:31] VITALS: BP 110/76; PULSE 58; RESP 14; TEMP 36.6; O2SAT 99
[2023-12-31 14:43] VITALS: BP 131/68; PULSE 63; RESP 21; O2SAT 100
--- NOTE | 2023-12-31 14:43 | ECG_ITS ---
[facility] Test Date: 2023-12-31 Pat Name: Jt Corrigan Department: Room: Gender: Male Cloth Presser: : 1970 Requested By: Leonie Cortés Order Number: [id number] MD: Charly Matamoros M.D. Measurements Intervals [place] Rate: 60 P: 46 NJ: 136 QRS: 4 QRSD: 105 T: 83 QT: 403 QTc: 403 Interpretive Statements SINUS RHYTHM POSSIBLE LEFT ATRIAL ENLARGEMENT [-0.1mV P-WAVE IN V1/V2] ANTEROSEPTAL MYOCARDIAL INFARCTION , AGE INDETERMINATE Compared to ECG 12/01/2023 07:36:57 No significant changes Electronically Signed On 12-31-2023 17:03:33 CDT by Charly Matamoros M.D. [id number]
--- NOTE | 2023-12-31 14:43 | XRR_ITS ---
PROCEDURE INFORMATION: Exam: XR Chest Exam date and time: 12/31/2023 2:48 PM Age: 53 years old Clinical indication: Pain; Angina pectoris; Additional info: Cp TECHNIQUE: Imaging protocol: Radiologic exam of the chest. Views: 1 view. COMPARISON: CR (CHEST, ) 12/01/2023 4:33 AM FINDINGS: Tubes, catheters and devices: Cardiac pacemaker on the left with leads in satisfactory position. Lungs: Unremarkable. No consolidation or mass. Pleural spaces: Unremarkable. No pleural effusion. No pneumothorax. Heart/Mediastinum: Unremarkable. No cardiomegaly. Bones/joints: Unremarkable. XR/XR chest 1V portable [id number] IMPRESSION: No acute findings.
--- NOTE | 2023-12-31 14:52 | ED_ITS ---
HPI - Chest Pain 2 General: Chief Complaint: Chest Pain Stated Complaint: low bp, previous chest pains, referred by fer Time Seen by Provider: 12/31/23 14:43 Source: patient Mode of arrival: ambulatory Limitations: no limitations History of Present Illness: 53-year-old male who has a history of CH F along with coronary artery disease patient had a cath when he was admitted 1 month ago and had no treatment at that time he was started on carvedilol states that since then he has been having increasing fatigue has had some hypotension at home as well. He states he had blood pressures in the 70s and 80s. He states he is felt very fatigued he had some chest pain off and on as well going on since the cardiac cath. He denies any pain currently denies any shortness of breath currently his blood pressure here is normal. Associated symptoms: Deny abdominal pain, dyspnea, fever(s), nausea or vomiting Review of Systems 2 Const: Reports: fatigue and malaise; Denies: fever(s), chills, body aches or change in appetite ENMT: Denies: throat pain or dental pain Card: Reports: chest pain Resp: Denies: dyspnea GI: Denies: abdominal pain, nausea, vomiting or diarrhea Musc: Denies: neck pain or back pain Skin/Breast: Denies: rash Neuro: Denies: headache(s) PFSH ED 2 PFSH: Medical History ICD (implantable cardioverter-defibrillator) in place [place]ann ICD implant 10/28/2018 History of CAD (coronary artery disease) History of hyperlipidemia History of hypertension Surgical History History of heart artery stent History of permanent cardiac pacemaker placement Family History Brother CAD (coronary artery disease) Father CAD (coronary artery disease) Social History Smoking and tobacco/nicotine status: former use of tobacco/nicotine Alcohol intake: never Substance/Drug Use: never Physical Exam 2 Const: COMMON NORMALS: patient oriented x3 HENMT: COMMON NORMALS: normocephalic and atraumatic HEAD & SCALP: n ormocephalic and atraumatic Eye: COMMON NORMALS: Equal, round and reactive pupils present and EOMs intact bilaterally PUPIL: Yes Equal, round and reactive pupils present Neck/C-Spine: COMMON NORMALS: full ROM and supple Chest: COMMONS NORMALS: normal inspection of the chest and normal palpation of entire chest wall Resp: COMMON NORMALS: normal respiratory effort, No retractions, No use of accessory muscles and clear to auscultation bilaterally AUSCULTATION: clear to auscultation bilaterally Cardio: COMMON NORMALS: regular rate, regular rhythm and No murmurs present (Cardio) RATE: regular rate RHYTHM: regular rhythm GI: COMMON NORMALS: Normal to inspection, nondistended, normoactive bowel sounds present, Soft to palpation, non-tender and no masses PALPATION: Yes Soft to palpation Extremity: COMMON NORMALS: normal to inspection and full ROM Neuro: COMMON NORMALS: patient oriented x3, moves all extremities and no focal motor deficits Psych: COMMON NORMALS: mental status grossly normal, Normal thought process present and cooperative THOUGHT PROCESS: Normal thought process present Skin: COMMON NORMALS: no rashes or lesions noted and no wounds GENERAL SKIN EXAM: no rashes or lesions noted Course 2 Vital Signs: Vital signs: Vital Signs Temperature 98 F 12/31/23 14:31 Pulse Rate 65 12/31/23 16:07 Respiratory Rate 14 12/31/23 16:07 Blood Pressure 82/48 12/31/23 16:07 Pulse Oximetry 96 12/31/23 16:07 Oxygen Delivery Me thod Room Air 12/31/23 14:43 MDM - Chest Pain Medical Decision Making Patient presents here with been having increasing fatigue along with low blood pressures and chest pains over the last 3 weeks has been chest pain-free here EKG showed no acute abnormality. His troponin here is negative I spoke to his ux lead Dr. matamoros who feels he stable for discharge he has no signs of ACS here we will stop his carvedilol that was started 1 month ago likely cause in his hypotension he is to take a log of his blood pressure and follow-up with cardiology in 2 to 3 weeks he is return if worsening he understands agrees to plan. Medical Records I reviewed the patient's medical records. Lab Data I reviewed the patient's lab results. 12/31/23 14:50 12/31/23 14:50 Radiology Impressions Chest X-Ray 12/31/23 14:43 IMPRESSION: No acute findings. Laboratory Results WBC 5.61 10^3/uL (3.29-11.43) 12/31/23 14:50 RBC 4.92 10^6/uL (3.85-5.65) 12/31/23 14:50 Hgb 15.30 g/dL (11.27-16.99) 12/31/23 14:50 Hct 45.5 % (37-53) 12/31/23 14:50 MCV 92.5 fl (82-101) 12/31/23 14:50 MCH 31.1 pg (27-33) 12/31/23 14:50 MCHC 33.6 g/dL (30-55) 12/31/23 14:50 RDW 12.7 % (12.1-15.1) 12/31/23 14:50 Plt Count 132 10^3/cmm (157-399) L 12/31/23 14:50 MPV 10.1 fL (7.4-10.4) 12/31/23 14:50 Total Counted 100 (0-100) 12/31/23 14:50 Atypical Lymphs % 13.0 % (0-5) H 12/31/23 14:50 Absolute Neutrophils 3.3 10^3/cmm (1.4-6.5) 12/31/23 14:50 Segmented Neutrophils 57 % 12/31/23 14:50 Abs Segm Neuts (Man) 3.2 10/cmm (1.6-7.1) 12/31/23 14:50 Band Neutrophils 2.0 % 12/31/23 14:50 Abs Band Neuts (Man) 0.1 10^3/cmm (0.0-1.2) 12/31/23 14:50 Absolute Lymphocytes 1.5 10^3/cmm (1.2-3.4) 12/31/23 14:50 Lymphocytes (Manual) 13 % 12/31/23 14:50 Monocytes (Manual) 2.0 % 12/31/23 14:50 Absolute Monocytes 0.1 10^3/cmm (0.1-0.6) 12/31/23 14:50 Eosinophils (Manual) 7 % 12/31/23 14:50 Absolute Eosinophils 0.4 10^3/cmm (0.0-0.7) 12/31/23 14:50 Basophils (Manual) 0.0 % 12/31/23 14:50 Absolute Basophils 0.0 10^3/cmm (0.0-0.2) 12/31/23 14:50 Platelet Estimate Normal (Normal) 12/31/23 14:50 PT 14.60 SECONDS (12.1-14.9) 12/31/23 14:50 INR 1.10 (0.8-1.2) 12/31/23 14:50 Sodium 134 mmol/L (136-145) L 12/31/23 14:50 Potassium 4.6 mmol/L (3.5-5.1) 12/31/23 14:50 Chloride 98 mmol/L (98-107) 12/31/23 14:50 Carbon Dioxide 25 mmol/L (22-29) 12/31/23 14:50 Anion Gap 15.6 (5-19) 12/31/23 14:50 BUN 13 mg/dL (6-20) 12/31/23 14:50 Creatinine 1.2 mg/dL (0.7-1.2) 12/31/23 14:50 GFR Calculation 63.6 mL/min (90-130) L 12/31/23 14:50 Glucose 96 mg/dL (65-115) 12/31/23 14:50 Calculated Osmolality 278 mOsm/kg (285-295) L 12/31/23 14:50 Calcium 8.8 mg/dL (8.5-10.5) 12/31/23 14:50 Total Bilirubin 0.6 mg/dL (0.15-1.2) 12/31/23 14:50 AST 35 U/L (0-40) 12/31/23 14:50 ALT 45 U/L (0-41) H 12/31/23 14:50 Alkaline Phosphatase 73 U/L (40-130) 12/31/23 14:50 Troponin T Baseline 8 ng/L (0-15) 12/31/23 14:50 NT-Pro-B Natriuret Pep 318 pg/mL (0-125) H 12/31/23 14:50 Total Protein 7.0 g/dL (6.6-8.7) 12/31/23 14:50 Albumin 3.7 g/dL (3.5-5.2) 12/31/23 14:50 Globulin 3.3 g/dL (1.3-4.6) 12/31/23 14:50 Lipase 33 U/L (13-60) 12/31/23 14:50 TSH 0.99 uIU/mL (0.27-4.20) 12/31/23 14:50 All radiology interpretation(s) finalized by discharge EKG Data EKG 1: I personally reviewed and interpreted this EKG as follows: EKG interpretation date: 12/31/23 EKG interpretation time: 14:36 Interpretation: nsr hr [address] elevation qrs 105 qtc 403 Discharge Plan Discharge Patient Disposition: Home Clinical Impression: Chest pain Condition: Stable Prescriptions: Discontinued carvedilol 3.125 mg tablet 3.125 mg PO BID Qty: 30 0RF No Action sacubitril-valsartan 24-26 mg tablet 1 tab PO BID Qty: 60 0RF atorvastatin 40 mg Tablet 40 mg PO BEDTIME Qty: 30 0RF aspirin 81 mg Tablet,Delayed Release (Dr/Ec) 81 mg PO DAILY Qty: 30 0RF Eliquis 5 mg tablet 5 mg PO BID Qty: 60 0RF omeprazole 20 mg Capsule,Delayed Release(Dr/Ec) 40 mg PO DAILY Qty: 30 0RF Discharge Orders: Discharge ED (Routine); Ordered 12/31/23 Ordered By: Leonie Cortés Referrals: Charly Matamoros M.D [Physician] - 2 weeks Discharge Diet: Advance as tolerated Discharge Activity: Resume usual activity Patient Instructions: Chest Pain (ED) Activity Restrictions/Additional Instructions: stop carvedilol Coding Level of Care Code ED Executive Receptionist for Suki Mendoza
--- NOTE | 2023-12-31 14:56 | PC.NURSE ---
IN room to assess patient. Noticed smoke in room upon entering. Pt states it's from his vap. Informed the patient that he can't use that in the ER. Pt verbalized understanding. Charge nurse- Aide baeza notified.
[2023-12-31 14:59] LABS: Hematocrit 45.5 % (37-53); Mean Corpuscular HGB Conc 33.6 g/dL (30-55); Mean Corpuscular Hemoglobin 31.1 pg (27-33); Mean Corpuscular Volume 92.5 fl (82-101); Mean Platelet Volume 10.1 fL (7.4-10.4); Platelet Count 132 10^3/cmm (157-399); Red Blood Count 4.92 10^6/uL (3.85-5.65); Red Cell Distribution Width 12.7 % (12.1-15.1); White Blood Count 5.61 10^3/uL (3.29-11.43)
[2023-12-31 15:07] VITALS: BP 119/71; PULSE 64; RESP 18; O2SAT 96
[2023-12-31 15:26] LABS: Troponin(5th) Baseline 8 ng/L (0-15)
[2023-12-31 15:37] VITALS: BP 95/65; PULSE 65; RESP 15; O2SAT 97
[2023-12-31 15:46] LABS: Slide Review Slide Review Perform
[2023-12-31 15:47] LABS: Absolute Eosinophils 0.4 10^3/cmm (0.0-0.7); Absolute Neutrophil 3.3 10^3/cmm (1.4-6.5); Absolute Segmented Neutrophil 3.2 10/cmm (1.6-7.1); Band Neutrophils Absolute 0.1 10^3/cmm (0.0-1.2); Eosinophils 7 %; Lymphocytes 13 %; Lymphocytes Absolute 1.5 10^3/cmm (1.2-3.4); Monocytes Absolute 0.1 10^3/cmm (0.1-0.6); Platelet Estimate Normal (Normal); Segmented Neutrophils 57 %; Total Cells Counted 100 (0-100)
[2023-12-31 16:07] VITALS: BP 82/48; PULSE 65; RESP 14; O2SAT 96
[2023-12-31] MEDS: sodium chloride 0.9% 1,000 ML 999 ML IV (16:09)
[2023-12-31 16:12] LABS: Alanine Aminotransferase 45 U/L (0-41); Albumin Level 3.7 g/dL (3.5-5.2); Alkaline Phosphatase 73 U/L (40-130); Anion Gap 15.6 (5-19); Aspartate Amino Transferase 35 U/L (0-40); Blood Urea Nitrogen 13 mg/dL (6-20); Calcium 8.8 mg/dL (8.5-10.5); Carbon Dioxide 25 mmol/L (22-29); Chloride 98 mmol/L (98-107); Creatinine Clr Calc Pharmacy 82.6063; Globulin 3.3 g/dL (1.3-4.6); Glomerular Filtration Rate 63.6 mL/min (90-130); Glucose 96 mg/dL (65-115); Lipase 33 U/L (13-60); NT Pro B Type Natriuretic Pept 318 pg/mL (0-125); Osmolality Calculated 278 mOsm/kg (285-295); Potassium 4.6 mmol/L (3.5-5.1); Sodium 134 mmol/L (136-145); Thyroid Stimulating Hormone 0.99 uIU/mL (0.27-4.20); Total Bilirubin 0.6 mg/dL (0.15-1.2)
== END 2023-12-31 16:55 | disposition home or self-care (01) ==
PROVIDERS: Emergency Provider Emergency Medicine
DX: R07.9 Chest pain, unspecified (principal); Z79.82 Long term (current) use of aspirin; Z79.01 Long term (current) use of anticoagulants; Z95.810 Presence of automatic (implantable) cardiac defibrillator; I25.10 Atherosclerotic heart disease of native coronary artery without angina pectoris; E78.5 Hyperlipidemia, unspecified; I10 Essential (primary) hypertension; Z87.891 Personal history of nicotine dependence
CPT/HCPCS: 71045; 80053; 83690; 83880; 84443; 84484; 85007; 85025; 85610; 93005; 99285; J7030

== ENCOUNTER → 2024-03-04 12:24 | Outpatient (BNVA) | payer MEDICARE, SELFPAY | PROVIDERS: Visit Provider Internal Medicine | DX: I25.118 Atherosclerotic heart disease of native coronary artery with other forms of angina pectoris (principal); I11.0 Hypertensive heart disease with heart failure; I50.22 Chronic systolic (congestive) heart failure; Z95.810 Presence of automatic (implantable) cardiac defibrillator; Z72.0 Tobacco use | CPT/HCPCS: 99214 ==

== ENCOUNTER 2024-03-08 11:20 | Observation (INO) | payer MEDICARE, SELFPAY ==
[2024-03-08] VITALS (57 sets, daily range): BP systolic 108–176; BP diastolic 68–121; PULSE 59–79; RESP 7–25; TEMP 36.4–36.7; O2SAT 90–100; BMI 29.2; BMI 28.8
--- NOTE | 2024-03-08 09:00 | XACV_ITS ---
Exam Room: 2 Ht: 180 cm Wt: 95 kg BSA: 2.21 m2 Gender: Male : 1970 Any Known Allergies: Plavix Exam Priority: Routine Procedure(s): Procedure Description: Diagnostic procedure Procedure Description: PCI procedure Procedure Description: Coronary IVUS Procedure Description: Drug Eluting Coronary Stent Procedure Description: PTCA Procedure Description: Miscellaneous Procedure Description: ACT Procedure Description: Coronary Angiography Diagnostic Cath Status: Elective Diagnostic Findings * INDICATION: Patient having worsening chest pain symptoms. Patient had recent admission with unstable anginal symptoms. LAD had mid vessel moderate to severe stenosis. iFR was borderline normal at 0.90. FFR was borderline normal at 0.81. However patient continues having worsening chest pain symptoms and shortness of breath. Cannot function because of fatigue, shortness of breath and chest discomfort. Given borderline normal findings on iFR and FFR, plan for coronary angiogram with PCI of LAD. Risks and benefits of procedure were discussed. * Left Main has mild luminal irregularities. * Right Coronary Artery has patent prior stent. * LAD has a proximal and mid vessel stent. There is a significant 70% eccentric stenosis between the 2 stents. Recent IFR and FFR were only borderline normal. Given worsening chest pain symptoms, plan to proceed with PCI. Distal to mid LAD stent, there is a moderate stenosis.. * Circumflex has no disease. * Coronary angiography shows right dominance. PCI Status: Elective Interventional Findings * Procedure detail:We engaged left main artery with XB 3.5 guide catheter. IV heparin was administered to maintain anticoagulation. 0.014 run-through guidewire was used to cross the stenosis and was placed in the distal vessel. We performed IVUS to size the stent. We predilated the stenosis between that proximal and mid vessel stent with 2.75 x 15 mm NC balloon. This was followed by placement of 3.0 x 18 mm resolute [place] drug-eluting stent. Same NC balloon was also used to post dilate prior mid vessel stent. At this time stenosis post mid LAD prior stent seemed more significant. We proceeded with placement of 2.5 x 12 mm resolute [place] drug-eluting stent. Final angiogram was performed that showed excellent stent expansion, no residual stenosis and SERENITY-3 flow. Guidewire and guide catheter were removed. Patient left the Pheresis Nurse in a stable condition.. * Mid Left Anterior Descendin% stenosis treated with a MDT NC EUPHORA RX [id number] BALLOON, MDT R LYSSA 3.0X18 SUZY, and MDT R LYSSA 2.5X12 SUZY. 0% residual stenosis, SERENITY: 3 flow. Conclusions 1. Severe mid LAD stenosis status post successful revascularization with 2 stents. 2. Mid Left Anterior Descending was treated with a Balloon, Drug Eluting Stent, and Drug Eluting Stent. Recommendations * Will discharge patient on Brilinta and Eliquis as mentions Plavix allergy.. * High intensity statin therapy. * Outpatient cardiology follow-up in 2 weeks. Interventional RX Recommendation: PCI w/o planned CABG Diagnostic RX Recommendation: PCI w/o planned CABG Anticoagulation: Heparin Pressures Phase:Rest AO : 119 / 85 ( 102 ) @ 11:34:00 AM 144 / 89 ( 112 ) @ 11:41:00 AM 132 / 63 ( 95 ) @ 11:47:00 AM 124 / 82 ( 100 ) @ 12:03:00 PM Clinical Evaluation EBL: 5mL-10mL Procedural Details Procedure Consent Obtained. Pre-Procedure Time Out. Identified patient by full name and date of as verbalized by the patient/guarantor. Does the consent match the physician's order: Yes. Accurate & Complete Informed Consent: Yes. Inpatient/Outpatient History & Physical on Chart: Yes. If H&P is completed, is and addenduem needed: No; If yes, is the addendum complete: N/A. Visualize and Verify Site with Patient/Guarantor: N/A. Relevant Radiology Images available: Yes. Pre-op teaching completed and patient verbalized understanding. The risks, benefits, and alternatives of sedation and/or procedure were discussed by physician. The patient agrees to continue. Procedure started. [facility] Clinical Fraility Score: 3: Managing Well. Pheresis Nurse Indications: Suspected CAD. Chest Pain Symptom Assessment: Typical Angina Symptoms. Correct patient, site and procedure confirmed by cath team. Current diagnosis: Chest Pain. PERRLA. Strong, equal hand apartment community manager bilaterally. Lungs clear x 5 lobes. IV Site on Arrival: 20 gauge in the left anticubital. IV Fluids: 0.9% NaCl at KVO. 0 mL infused prior to lab coordinator. Oxygen started at 2liters/min via nasal canula. Pre Procedural Pulses: right dorsalis pedis was 1+. Pre Procedural Pulses: left dorsalis pedis was Doppled. Pre Procedural Pulses: bilateral posterior tibial was 1+. Pre Procedural Pulses: right radial was 2+. bilateral groins was prepped with chloroprep then draped in the usual sterile fashion. Baseline sample Acquired. HR: 69 BPM. Physician arrived. Physician scrubbed in. Immediate Pre-Procedure Time Out. Correct Patient: Yes; Correct Procedure: Yes; Correct Site: Yes; Correct Patient Position: Yes; Correct Supplies: Yes; Dried Flammable Prep: Yes; Blood Products Available: N/A;. Lidocaine 1% infiltrated to the right groin. Arterial access obtained with micropuncture set. A 5 vincentian JL4 catheter in over wire. Multiple views taken of left coronary artery. Catheter removed over the standard wire. A 5 vincentian JR4 catheter in over wire. Multiple views taken of right coronary artery. Catheter removed over the standard wire. 6 vincentian XB 3.5 guide catheter was inserted over the wire. Runthrough guidewire was advanced through the guide catheter to lesion in the mid LAD. Inflation number : 1 A MDT MARTIN EUPHORA RX [id number] BALLOON was prepped and advanced across the Mid LAD , then inflated to 12 TIA for 0:18 seconds. Balloon out. Results checked. Inflation Number : 2 A MDT R LYSSA 3.0X18 SUZY -Lot Number# _[id number] EXP: 03/31/2026 was prepped and advanced across the Mid LAD. The stent was deployed at 14 TIA for 0:16 seconds. Stent balloon out over wire. IVUS catheter inserted and advanced to the LAD. Measurements obtained. IVUS catheter out OTW. Inflation number: 3 The MDT NC EUPHORA RX [id number] BALLOON was reinflated across the Mid LAD, to 12 TIA for 0:10 seconds. Inflation number: 4 The MDT NC EUPHORA RX [id number] BALLOON was reinflated across the Mid LAD, to 14 TIA for 0:10 seconds. Inflation number: 5 The MDT NC EUPHORA RX 2.52X37WJ BALLOON was reinflated across the Mid LAD, to 18 TIA for 0:09 seconds. Inflation number: 6 The MDT NC EUPHORA RX 2.24N19OC BALLOON was reinflated across the Mid LAD, to 20 TIA for 0:06 seconds. Balloon out. Results checked. IVUS catheter inserted and advanced to the LAD. Measurements obtained. IVUS catheter out OTW. Results checked. Inflation Number : 7 A MDT R LYSSA 2.5X12 SUZY -Lot Number# _[id number] EXP: 10/28/2026 was prepped and advanced across the Mid LAD. The stent was deployed at 12 TIA for 0:24 seconds. Inflation number: 8 The stent balloon was then re-inflated across the Mid LAD to 14 TIA for 0:07 seconds. Stent balloon out over wire. Inflation number: 9 The MDT NC EUPHORA RX 2.80W05PN BALLOON was reinflated across the Mid LAD, to 14 TIA for 0:12 seconds. Balloon out. Results checked. Wire out. Results checked. ACT drawn. Results 243 seconds. Therapeutic limits - pre-heparin administration 90-150 seconds and monitoring heparin during a vascular procedure >250 seconds. Guide catheter out. A Right femoral angiogram was performed to determine safe placement of closure device. Lidocaine 1% infiltrated to the right groin. A Angio-Seal VIP ([place]) was successful obtaining hemostatsis at the Right Femoral artery insertion site. Current Diagnosis : Chest Pain. Post Procedure: Pulses reassessed and unchanged. PERRLA. Strong, equal hand apartment community manager bilaterally. No VTE prophylaxis required. Medication's Wasted: Other = Fentanyl 75mcg Versed 1 mg. Medication's Wasted: Nitro = 49.8 mcg. Medication's Wasted: Lidocaine 1% = 15 mL. Total IV fluids: 70 mL. Post-op diagnosis: Stent to LAD. Complications: None. Estimated blood loss: 5mL-10mL. Responsiveness - Normal response to verbal stimuli; alert and oriented, PERRLA. Airway - Unaffected, no intervention required; spontaneous ventilation. Circulation: W/N/L, pulses unchanged. Nausea/Vomiting: No. Procedure completed. Patient transferred by bed to ICU. Vital chart was stopped. Access Site Site: Right Femoral artery Sheath Size: 6 Fr Hemostasis Method: Angio-Seal VIP ([place]) Hemostasis Success: Successful Procedure Medications Start: 10:19 AM Stop: 10:19 AM Medication: Fentanyl Amount: 50 mcg Route: I.V. Start: 10:22 AM Stop: 10:22 AM Medication: Versed Amount: 1 mg Route: I.V. Start: 10:25 AM Stop: 10:25 AM Medication: Versed Amount: 1 mg Route: I.V. Start: 10:28 AM Stop: 10:28 AM Medication: Fentanyl Amount: 25 mcg Route: I.V. Start: 10:30 AM Stop: 10:30 AM Medication: Versed Amount: 1 mg Route: I.V. Start: 10:38 AM Stop: 10:38 AM Medication: Heparin Amount: 9000 units Route: I.V. Start: 10:54 AM Stop: 10:54 AM Medication: Fentanyl Amount: 25 mcg Route: I.V. Start: 10:56 AM Stop: 10:56 AM Medication: Nitrogylcerin Amount: 200 mcg Route: I.C. Start: 11:08 AM Stop: 11:08 AM Medication: Heparin Amount: 2000 units Route: I.V. Start: 11:08 AM Stop: 11:08 AM Medication: Brilinta Amount: 180 mg Route: P.O. Start: 11:11 AM Stop: 11:11 AM Medication: Fentanyl Amount: 25 mcg Route: I.V. I, the attending physician, have reviewed and verified all procedure medications. Yes, all medications given per verbal order History/Risk Factors Hypertension: Yes Dyslipidemia: Yes Peripheral Arterial Disease (PAD): No Myocardial Infarction ([place]): No Obesity: No Renal Disease: No Tobacco Use: Current/Recent(w/in 1 year) Prior Interventions PCI: Yes CABG: No Valve Surgery: No Report Signatures Finalized by Charly Matamoros MD on 03/14/2024 10:34 AM
[2024-03-08] MEDS: diphenhydrAMINE 50 mg Capsule PO (09:40)
[2024-03-08] MEDS: aspirin 325 mg Tablet PO (09:40)
[2024-03-08 09:42] LABS: Basophils # 0.1 10^3/uL (0.0-0.1); Eosinophils # 0.4 10^3/uL (0.0-0.8); Hematocrit 48.1 % (37-53); Lymphocytes % 37.8 %; Mean Corpuscular HGB Conc 32.2 g/dL (30-55); Mean Corpuscular Hemoglobin 30.8 pg (27-33); Mean Corpuscular Volume 95.4 fl (82-101); Monocytes # 0.5 10^3/uL (0.2-0.9); Monocytes % 6.5 %; Neutrophils # 3.97 10^3/uL (1.8-7.7); Neutrophils % 49.3 %; Nucleated Red Blood Cells % 0 %; Platelet Count 192 10^3/cmm (157-399); Red Blood Count 5.04 10^6/uL (3.85-5.65); Red Cell Distribution Width 12.6 % (12.1-15.1); White Blood Count 8.04 10^3/uL (3.29-11.43)
[2024-03-08 09:50] LABS: Anion Gap 17.1 (5-19); Blood Urea Nitrogen 12 mg/dL (6-20); Carbon Dioxide 25 mmol/L (22-29); Chloride 104 mmol/L (98-107); Glomerular Filtration Rate 63.6 mL/min (90-130); Glucose 100 mg/dL (65-115); Osmolality Calculated 294 mOsm/kg (285-295); Potassium 4.1 mmol/L (3.5-5.1); Sodium 142 mmol/L (136-145)
--- NOTE | 2024-03-08 10:21 | P.HPUD_ITS ---
Surgery/Procedure H&P Update DATE OF PROCEDURE: March 08, 2024 DATE H&P PERFORMED: 03/04/24 H&P UPDATE INFORMATION: I have reviewed H&P completed within last 30 days, I have examined patient prior to procedure and No changes to prior documentation CHANGES TO PREVIOUS DOCUMENTATION: Patient had admission recently with unstable anginal symptoms. LAD had mid vessel moderate to severe stenosis. iFR was borderline normal at 0.90. FFR was borderline normal at 0.81. However patient continues having worsening chest pain symptoms and shortness of breath. Cannot function because of fatigue, shortness of breath and chest discomfort. Given borderline normal findings on iFR and FFR, plan for coronary angiogram with PCI of LAD. Risks and benefits of procedure were discussed with PREOP DIAGNOSIS: Worsening angina PRIMARY INDICATION FOR PROCEDURE: Worsening angina PLANNED PROCEDURE: Operation Date: 03/08/24 10:00 Proposed Procedures p Cardiac Catheterization - [facility] w/wo LV & Coros(Left) - Charly Matamoros M.D Percutaneous coronary intervention PATIENT REASSESSED PRIOR TO SEDATION, WITH NO CHANGE NOTED: Yes PHYSICAL EXAM: alert, oriented x 3, clear to auscultation bilaterally and regular rate & rhythm AIRWAY EVAL/ANESTHESIA PLAN: normal airway, ASA III, Local Anesthesia, Risks, benefits & alternatives of sedation and/or procedure discussed and Patient agrees to continue as planned ADDITIONAL INFORMATION: Moderate sedation
[2024-03-08] MEDS: sodium chloride 0.9% 1,000 ML 50 ML IV (12:50)
[2024-03-08] MEDS: ticagrelor 90 mg Tablet PO (17:25)
[2024-03-08] MEDS: sacubitril/valsartan 24-26 mg Tablet 1 EACH PO (17:25)
[2024-03-08] MEDS: atorvastatin 40 mg Tablet PO (17:25)
[2024-03-08] MEDS: sodium chloride 0.9% 1,000 ML 100 ML IV (19:03)
[2024-03-09] VITALS (57 sets, daily range): BP systolic 121–159; BP diastolic 73–94; PULSE 58–87; RESP 5–25; TEMP 36.5–36.7; O2SAT 94–99; BMI 28.7
[2024-03-09] MEDS: sodium chloride 0.9% 1,000 ML 100 ML IV (03:40)
[2024-03-09 04:05] LABS: Basophils # 0.1 10^3/uL (0.0-0.1); Basophils % 0.8 %; Eosinophils # 0.3 10^3/uL (0.0-0.8); Eosinophils % 4.3 %; Hematocrit 43.2 % (37-53); Lymphocytes # 2.3 10^3/uL (0.8-4.8); Lymphocytes % 30.3 %; Mean Corpuscular HGB Conc 33.1 g/dL (30-55); Mean Corpuscular Hemoglobin 31.4 pg (27-33); Mean Corpuscular Volume 94.9 fl (82-101); Mean Platelet Volume 9.8 fL (7.4-10.4); Monocytes # 0.5 10^3/uL (0.2-0.9); Monocytes % 6.8 %; Neutrophils # 4.27 10^3/uL (1.8-7.7); Neutrophils % 57.4 %; Nucleated Red Blood Cells % 0 %; Platelet Count 162 10^3/cmm (157-399); Red Blood Count 4.55 10^6/uL (3.85-5.65); Red Cell Distribution Width 12.7 % (12.1-15.1); White Blood Count 7.45 10^3/uL (3.29-11.43)
[2024-03-09 04:28] LABS: Anion Gap 14.2 (5-19); Blood Urea Nitrogen 11 mg/dL (6-20); Calcium 8.5 mg/dL (8.5-10.5); Carbon Dioxide 23 mmol/L (22-29); Chloride 109 mmol/L (98-107); Creatinine Clr Calc Pharmacy 91.9556; Glomerular Filtration Rate 70.3 mL/min (90-130); Glucose 103 mg/dL (65-115); Osmolality Calculated 294 mOsm/kg (285-295); Potassium 4.2 mmol/L (3.5-5.1); Sodium 142 mmol/L (136-145)
[2024-03-09] MEDS: aspirin 81 mg EC Tablet PO (08:28)
[2024-03-09] MEDS: sacubitril/valsartan 24-26 mg Tablet 1 EACH PO (08:28)
[2024-03-09] MEDS: ticagrelor 90 mg Tablet PO (08:28)
--- NOTE | 2024-03-09 08:32 | P.DS_ITS ---
Discharge Providers Date of Admission: 03/08/24 11:20 Date of Discharge: March 09, 2024 Attending Provider at Admission: Charly Matamoros M.D Attending Provider at Discharge: Charly Matamoros M.D Reason for Visit Reason for Visit: I20.0 Brief History: 54-year-old man with prior history of mu ltiple stents, congestive heart failure who has been having worsening chest pain symptoms concerning for unstable angina. Had recent prior hospital admission with unstable angina. At that time LAD IFR and FFR were only borderline normal. Medical therapy was initiated however limited with hypotensive episodes. Plan for coronary angiogram with PCI of LAD. Hospital Course Hospital Course Coronary angiogram showed severe eccentric mid LAD stenosis. Status post successful revascularization with 2 stent. Physical Exam Narrative: GENERAL: Patient is alert, awake and oriented x3. [] NECK: No jugular vein distension. [] HEENT: No cyanosis. No icterus. No pallor. [] HEART: Regular S1 and S2. No murmur, rub or gallop. [] LUNGS: Clear to auscultate bilaterally. [] CENTRAL NERVOUS SYSTEM: Grossly nonfocal. [] EXTREMITIES: Lower extremities with 1+ edema bilaterally. Discharge Data Studies Completed and Pending Pending at discharge Category Date Time Status SENIOR PRODUCT CONSULTANT request for service Routine Exams 03/08/24 09:00 Taken Laboratory Results WBC 7.45 10^3/uL (3.29-11.43) 03/09/24 03:48 RBC 4.55 10^6/uL (3.85-5.65) 03/09/24 03:48 Hgb 14.30 g/dL (11.27-16.99) 03/09/24 03:48 Hct 43.2 % (37-53) 03/09/24 03:48 MCV 94.9 fl (82-101) 03/09/24 03:48 MCH 31.4 pg (27-33) 03/09/24 03:48 MCHC 33.1 g/dL (30-55) 03/09/24 03:48 RDW 12.7 % (12.1-15.1) 03/09/24 03:48 Plt Count 162 10^3/cmm (157-399) 03/09/24 03:48 MPV 9.8 fL (7.4-10.4) 03/09/24 03:48 Neut % (Auto) 57.4 % 03/09/24 03:48 Lymph % (Auto) 30.3 % 03/09/24 03:48 Talbot % (Auto) 6.8 % 03/09/24 03:48 Eos % (Auto) 4.3 % 03/09/24 03:48 Baso % (Auto) 0.8 % 03/09/24 03:48 Neut # (Auto) 4.27 10^3/uL (1.8-7.7) 03/09/24 03:48 Lymph # (Auto) 2.3 10^3/uL (0.8-4.8) 03/09/24 03:48 Talbot # (Auto) 0.5 10^3/uL (0.2-0.9) 03/09/24 03:48 Eos # (Auto) 0.3 10^3/uL (0.0-0.8) 03/09/24 03:48 Baso # (Auto) 0.1 10^3/uL (0.0-0.1) 03/09/24 03:48 Nucleated RBC % (auto) 0 % 03/09/24 03:48 Nucleated RBCs # 0.0 /100WBC 03/09/24 03:48 Sodium 142 mmol/L (136-145) 03/09/24 03:48 Potassium 4.2 mmol/L (3.5-5.1) 03/09/24 03:48 Chloride 109 mmol/L (98-107) H 03/09/24 03:48 Carbon Dioxide 23 mmol/L (22-29) 03/09/24 03:48 Anion Gap 14.2 (5-19) 03/09/24 03:48 BUN 11 mg/dL (6-20) 03/09/24 03:48 Creatinine 1.1 mg/dL (0.7-1.2) 03/09/24 03:48 GFR Calculation 70.3 mL/min (90-130) L 03/09/24 03:48 Glucose 103 mg/dL (65-115) 03/09/24 03:48 Calculated Osmolality 294 mOsm/kg (285-295) 03/09/24 03:48 Calcium 8.5 mg/dL (8.5-10.5) 03/09/24 03:48 Vitals Last Vital Signs Temp 97.7 F 03/09/24 05:11 Pulse 70 03/09/24 08:05 Resp 16 03/09/24 08:05 BP 144/82 03/09/24 08:05 Pulse Ox 96 03/09/24 08:05 O2 Del Method Room Air 03/09/24 04:00 Discharge Plan Discharge Patient Disposition: Home Condition: Stable Prescriptions: New Brilinta 90 mg Tablet 90 mg PO BID Qty: 180 2RF Continued omeprazole 20 mg Capsule,Delayed Release(Dr/Ec) 40 mg PO DAILY Qty: 30 0RF atorvastatin 40 mg Tablet 40 mg PO QPM sacubitril-valsartan 24-26 mg Tablet 1 tab PO BID Held Eliquis 5 mg tablet 5 mg PO BID Qty: 60 0RF Hold Instructions: Resume on 03/10/24. Discontinued aspirin 81 mg Tablet,Delayed Release (Dr/Ec) 81 mg PO DAILY Qty: 30 0RF Discharge Orders: Discharge Order (Routine); Ordered 03/09/24 Ordered By: Charly Matamoros Referrals: Mariana Avalos FNP [Nurse Practitioner] - 03/17/24 1:15 pm Discharge Diet: Cardiac Discharge Activity: Increase activity as tolerated Patient Instructions: Ticagrelor (By mouth), Coronary Angioplasty (DC), Heart Healthy Diet (ED), Chest Pain Stoplight, Opioid Safety Discharge Attestations Time Spent in Discharge Care*: less than 30 min Quality Metrics Clinical Quality Measures [ No reported AMI, CVA or VTE this stay] Coding Level of Care Code Acute Code for Chg Kelly
--- NOTE | 2024-03-09 09:17 | PC.NURSE ---
Patient received discharge orders, all IVs removed. Medications sent to patients preferred pharmacy. All discharge instructions given and went over with patient. patient verbalized understanding. Patient will exit to main exit via w/c with staff, when patients ride arrives.
--- NOTE | 2024-03-09 09:49 | PC.NURSE ---
Patient left to main exit at [id number]
== END 2024-03-09 09:49 | disposition home or self-care (01) ==
LOC: ICU 11:22
PROVIDERS: Admitting Provider Internal Medicine; Visit Provider Internal Medicine
DX: I25.110 Atherosclerotic heart disease of native coronary artery with unstable angina pectoris (principal); I25.5 Ischemic cardiomyopathy; Z79.01 Long term (current) use of anticoagulants; Z79.82 Long term (current) use of aspirin; I50.22 Chronic systolic (congestive) heart failure; Z95.810 Presence of automatic (implantable) cardiac defibrillator
CPT/HCPCS: 36415; 80048; 85025; 85347; 92978; 93454; 96374; 96375; 96376; 99152; 99153; C1725; C1753; C1760; C1769; C1874; C1887; C1894; C9600; G0269; G0378; J1644; J2250; J3010; J3490; J7030; Q0163; Q9967

== ENCOUNTER → 2024-03-17 14:09 | Outpatient (BNVA) | payer MEDICARE, SELFPAY | PROVIDERS: Visit Provider Nurse Practitioner Family | DX: I25.10 Atherosclerotic heart disease of native coronary artery without angina pectoris (principal); Z95.5 Presence of coronary angioplasty implant and graft | CPT/HCPCS: 99213 ==

== ENCOUNTER → 2024-06-03 14:00 | Outpatient (BNVA) | payer MEDICARE, SELFPAY | PROVIDERS: Visit Provider Internal Medicine Cardiovascular Disease | DX: Z86.79 Personal history of other diseases of the circulatory system (principal) | CPT/HCPCS: 99214 ==

== ENCOUNTER 2024-11-02 10:58 | Outpatient (CLI) | payer MEDICARE, SELFPAY ==
[2024-11-02 12:04] LABS: Anion Gap 14.4 (5-19); Blood Urea Nitrogen 9 mg/dL (6-20); Calcium 8.9 mg/dL (8.5-10.5); Carbon Dioxide 27 mmol/L (22-29); Chloride 105 mmol/L (98-107); Glomerular Filtration Rate 78.2 mL/min (90-130); Glucose 91 mg/dL (65-115); Osmolality Calculated 292 mOsm/kg (285-295); Potassium 4.4 mmol/L (3.5-5.1); Sodium 142 mmol/L (136-145)
== END 2024-11-02 10:59 | disposition home or self-care (01) ==
PROVIDERS: Visit Provider Nurse Practitioner Family
DX: I50.22 Chronic systolic (congestive) heart failure (principal)
CPT/HCPCS: 36415; 80048

== ENCOUNTER → 2024-11-24 07:40 | Outpatient (BNVA) | payer MEDICARE, SELFPAY | PROVIDERS: Visit Provider Nurse Practitioner Family | DX: I25.118 Atherosclerotic heart disease of native coronary artery with other forms of angina pectoris (principal); I11.0 Hypertensive heart disease with heart failure; I50.22 Chronic systolic (congestive) heart failure; Z95.810 Presence of automatic (implantable) cardiac defibrillator; Z72.0 Tobacco use | CPT/HCPCS: 99214 ==

== ENCOUNTER → 2025-03-15 12:49 | Outpatient (BNVA) | payer MEDICARE, SELFPAY | PROVIDERS: Visit Provider Internal Medicine | DX: Z45.02 Encounter for adjustment and management of automatic implantable cardiac defibrillator (principal) | CPT/HCPCS: 93296 ==